=== PATIENT | male | born 1950 | race Caucasian/White ===

== ENCOUNTER 2019-04-17 12:28 | Inpatient (IN) | payer OTHER ==
[~2019-04-17] VITALS: Ht 167.6 cm; Wt 70.3 kg
== END 2019-05-13 12:38 | disposition home or self-care (01) | DRG 330 ==
LOC: SURG 05-01 14:15 → O/R 05-09 07:23 → SURH 05-09 07:23 → SURG 05-09 10:45 → SURH 05-09 15:55
PROVIDERS: ADMIT Colon & Rectal Surgery
PROC: 07TB0ZZ Resection of Mesenteric Lymphatic, Open Approach (ICD-10-PCS; 2019-05-09)
PROC: 0DQ80ZZ Repair Small Intestine, Open Approach (ICD-10-PCS; 2019-05-09)
PROC: 0DT80ZZ Resection of Small Intestine, Open Approach (ICD-10-PCS; 2019-05-09)
PROC: 0FT40ZZ Resection of Gallbladder, Open Approach (ICD-10-PCS; 2019-05-09)
PROC: 0DTF0ZZ Resection of Right Large Intestine, Open Approach (ICD-10-PCS; principal; 2019-05-09 10:45)
DX: C7A.021 Malignant carcinoid tumor of the cecum (principal); K91.72 Accidental puncture and laceration of a digestive system organ or structure during other procedure; K66.0 Peritoneal adhesions (postprocedural) (postinfection); K81.1 Chronic cholecystitis; D17.5 Benign lipomatous neoplasm of intra-abdominal organs

== ENCOUNTER 2019-05-29 20:10 | Inpatient (IN) | payer OTHER ==
[~2019-05-29] VITALS: Ht 167.6 cm; Wt 56.7 kg
[2019-05-29] MEDS ORDERED: MIRALAX17 GM (21:00)
[2019-06-30] MEDS ORDERED: INTESTINEX680 M1 PO (11:37)
[2019-06-30] MEDS ORDERED: PRILOSEC OTC20 MG PO (11:37)
== END 2019-06-30 13:31 | disposition home or self-care (01) | DRG 330 ==
LOC: ER 20:10 → SURH 05-30 16:17 → SURG 05-30 16:17 → SURH 06-05 15:09
PROVIDERS: ADMIT Colon & Rectal Surgery
PROC: 3E0436Z Introduction of Nutritional Substance into Central Vein, Percutaneous Approach (ICD-10-PCS; 2019-05-31)
PROC: 02HV33Z Insertion of Infusion Device into Superior Vena Cava, Percutaneous Approach (ICD-10-PCS; 2019-05-31)
PROC: BW21YZZ Computerized Tomography (CT Scan) of Abdomen and Pelvis using Other Contrast (ICD-10-PCS; 2019-06-05)
PROC: 0DH67UZ Insertion of Feeding Device into Stomach, Via Natural or Artificial Opening (ICD-10-PCS; 2019-06-06)
PROC: 3E0G76Z Introduction of Nutritional Substance into Upper GI, Via Natural or Artificial Opening (ICD-10-PCS; 2019-06-06)
PROC: 0DJD8ZZ Inspection of Lower Intestinal Tract, Via Natural or Artificial Opening Endoscopic (ICD-10-PCS; 2019-06-23)
PROC: 0DJD8ZZ Inspection of Lower Intestinal Tract, Via Natural or Artificial Opening Endoscopic (ICD-10-PCS; 2019-06-27)
PROC: 0DTN4ZZ Resection of Sigmoid Colon, Percutaneous Endoscopic Approach (ICD-10-PCS; principal; 2019-06-27 22:00)
DX: K56.51 Intestinal adhesions [bands], with partial obstruction (principal); E44.0 Moderate protein-calorie malnutrition; C18.0 Malignant neoplasm of cecum; K92.1 Melena; D62 Acute posthemorrhagic anemia; I11.9 Hypertensive heart disease without heart failure; K64.1 Second degree hemorrhoids; K63.89 Other specified diseases of intestine

== ENCOUNTER 2020-03-29 08:32 | Day surgery (SDC) | payer OTHER ==
[~2020-03-29 08:32] MED LIST: INTESTINEX680 M1 PO; MIRALAX17 GM; PRILOSEC OTC20 MG PO
== END 2020-03-29 14:45 | disposition home or self-care (01) ==
LOC: AMB-ENDOS 08:32
PROVIDERS: ATTEND Colon & Rectal Surgery
DX: K62.89 Other specified diseases of anus and rectum (principal); K64.1 Second degree hemorrhoids